=== PATIENT | female | born 1980 | race Two or more races ===

== ENCOUNTER 2023-06-01 18:10 | Inpatient (IN) | payer MEDICAID, OTHER ==
[~2023-06-01] VITALS: Ht 144.8 cm; Wt 73.4 kg
[2023-06-01 19:08] LABS: BASOPHILS % (AUTO) 0.9 % (0.0-2.0); EOSINOPHILS % (AUTO) 0.1 % (1.0-6.0); HEMATOCRIT 39.7 % (36-46); LYMPHOCYTES # (AUTO) 2.1 K/uL (1.0-4.8); LYMPHOCYTES % (AUTO) 27.7 % (22.0-44.0); MEAN CORPUSCULAR HEMOGLOBIN 25.5 pg (26.0-34.0); MEAN CORPUSCULAR HGB CONC 32.8 G/dL (31.0-37.0); MEAN CORPUSCULAR VOLUME 78 fL (80-100); MONOCYTES # (AUTO) 0.6 K/uL (0.1-1.0); MONOCYTES % (AUTO) 7.5 % (2.0-9.0); NEUTROPHILS # (AUTO) 4.9 K/uL (1.8-7.7); NEUTROPHILS % (AUTO) 63.8 % (40.0-70.0); PLATELET COUNT (AUTO) 349 K/uL (150-450); RED BLOOD CELL COUNT(AUTO) 5.12 MIL/uL (4.00-5.20); RED CELL DISTRIBUTION WIDTH 15.8 % (11.5-14.5); WHITE BLOOD COUNT (AUTO) 7.7 K/uL (4.5-11.0)
[2023-06-01 19:11] LABS: ANION GAP 11 mmol/L (8-16); CALCIUM, TOTAL 9.3 mg/dL (8.8-10.5); CARBON DIOXIDE 27 mmol/L (22-29); CHLORIDE 102 mmol/L (98-107); CREATININE 0.62 mg/dL (0.60-1.30); GLOMERULAR FILTR. RATE CALC > 60 mL/min (>60); GLUCOSE,RANDOM 97 mg/dL (70-110); POTASSIUM 3.4 mmol/L (3.5-5.1); SODIUM SERUM 139 mmol/L (136-145); UREA NITROGEN, BLOOD 11 mg/dL (7-18)
[2023-06-01 19:17] LABS: ALANINE AMINOTRANSFERASE 8 U/L (12-78); ALBUMIN 3.9 g/dL (3.4-5.0); ALKALINE PHOSPHATASE 89 U/L (46-116); ASPARTATE AMINOTRANSFERASE 15 U/L (15-37); BILIRUBIN,TOTAL 0.3 mg/dL (0.1-1.0); TOTAL PROTEIN, SERUM 7.6 g/dL (6.4-8.2)
[2023-06-01 19:18] LABS: ALCOHOL, BLOOD (SERUM) < 3 mg/dL (0-10)
[2023-06-01] MEDS ORDERED: LORazepam 2 MG TABLET PO ONE (19:45)
[2023-06-01] MEDS ORDERED: TraZODone HCL 50 MG TABLET PO ONE (19:45)
[2023-06-01] MEDS ORDERED: ZOLPIDEM TARTRATE 10 MG TABLET PO PRN (20:00)
[2023-06-01] MEDS ORDERED: LORazepam 2 MG TABLET PO PRN (20:00)
[2023-06-01] MEDS ORDERED: HALOPERIDOL 5 MG TABLET PO PRN (20:00)
[2023-06-01 20:44] LABS: APPEARANCE,URINE HAZY (CLEAR); BILIRUBIN,URINE NEGATIVE (NEGATIVE); COLOR,URINE YELLOW (YELLOW); GLUCOSE, URINE (UA) NEGATIVE (NEGATIVE); LEUKOCYTE ESTERASE ,URINE LARGE (NEGATIVE); NITRATE,URINE NEGATIVE (NEGATIVE); OCCULT BLOOD,URINE LARGE (NEGATIVE); PH,URINE 6.5 (5.0-8.0); PROTEIN,URINE 30-70 mg/dL (NEGATIVE); UROBILINOGEN,URINE <=1.0 mg/dL (<=1.0)
[2023-06-01 20:48] LABS: PH,URINE DRUG SCREEN 6.5 (5.0-8.0)
[2023-06-01 20:49] LABS: ALCOHOL, URINE DRUG SCREEN NEGATIVE (NEGATIVE); AMPHET/METH SCREEN,URINE NEGATIVE (NEGATIVE); BARBITURATE SCREEN, URINE NEGATIVE (NEGATIVE); BENZODIAZEPINES SCREEN,URINE NEGATIVE (NEGATIVE); CANNABINOID SCREEN,URINE NEGATIVE (NEGATIVE); COCAINE SCREEN,URINE NEGATIVE (NEGATIVE); METHADONE SCREEN, URINE NEGATIVE (NEGATIVE); OPIATE SCREEN,URINE NEGATIVE (NEGATIVE); PHENCYCLIDINE SCREEN,URINE NEGATIVE (NEGATIVE)
[2023-06-01 20:56] LABS: BACTERIA,URINE Few /HPF (None Seen); RBC,URINE 26-50 /HPF (0-2); WBC,URINE 51-100 /HPF (0-5)
[2023-06-01 20:57] LABS: SQUAMOUS EPITHELIAL CELL,UR Many /LPF (None Seen)
[2023-06-01 23:00] VITALS: RESP 18
[2023-06-01 23:13] LABS: COVID AG,FIA SOURCE NASAL SWAB
[2023-06-01 23:40] LABS: SARS-COV2 (COVID) ANTIGEN,FIA Negative (Negative)
[2023-06-02] VITALS (8 sets, daily range): BP systolic 109–115; BP diastolic 52–78; PULSE 76–88; RESP 18; TEMP 97–97.6
[2023-06-02] MEDS ORDERED: IBUPROFEN 600 MG TABLET PO PRN (05:45)
[2023-06-02] MEDS ORDERED: MAG HYDROX/AL HYDROX/SIMETH ES 30 ML SUSPENSION UDCUP PO PRN (05:45)
[2023-06-02] MEDS ORDERED: BACITRACIN 28 GM OINTMENT TP PRN (05:45)
[2023-06-02] MEDS ORDERED: ONDANSETRON HCL 4 MG TABLET PO PRN (05:45)
[2023-06-02] MEDS ORDERED: PETROLATUM,WHITE 28 GM JELLY TP PRN (05:45)
[2023-06-02] MEDS ORDERED: MAGNESIUM HYDROXIDE SUSPENSION 30 ML UDCUP PO PRN (05:45)
[2023-06-02] MEDS ORDERED: LOPERAMIDE HCL 2 MG CAPSULE PO PRN (05:45)
[2023-06-02] MEDS ORDERED: BENZOCAINE/MENTHOL LOZENGE PO PRN (05:45)
[2023-06-02] MEDS ORDERED: ACETAMINOPHEN 325 MG TABLET PO PRN (05:45)
[2023-06-02] MEDS ORDERED: OMEPRAZOLE 20 MG CAPSULE PO PRN (05:45)
[2023-06-02] MEDS ORDERED: ALBUTEROL SULFATE HFA 90 MCG/PUFF 8 GM INHALER IH PRN (05:45)
[2023-06-02] MEDS ORDERED: CloNIDine HCL 0.1 MG TABLET PO PRN (05:45)
[2023-06-02] MEDS ORDERED: DOCUSATE SODIUM 100 MG CAPSULE PO PRN (05:45)
[2023-06-02] MEDS: LACTOBAC ACID/BULG/BIFID/THERM TABLET PO SCH (09:08)
[2023-06-02] MEDS: NITROFURANTOIN MONOHYD/M-CRYST 100 MG CAPSULE [MACROBID] PO SCH ×2 (09:08→16:09)
[2023-06-02] MEDS ORDERED: VENLAFAXINE HCL 75 MG TABLET PO SCH (11:30)
[2023-06-02] MEDS: VENLAFAXINE HCL 37.5 MG TABLET PO SCH (15:16)
[2023-06-02] MEDS: TraZODone HCL 100 MG TABLET PO SCH (21:00)
[2023-06-03] VITALS (7 sets, daily range): BP systolic 130–158; BP diastolic 61–92; PULSE 88–93; RESP 18–19; TEMP 97.5–98
[2023-06-03] MEDS: LACTOBAC ACID/BULG/BIFID/THERM TABLET PO SCH (08:37)
[2023-06-03] MEDS: VENLAFAXINE HCL 37.5 MG TABLET PO SCH (08:37)
[2023-06-03] MEDS: NITROFURANTOIN MONOHYD/M-CRYST 100 MG CAPSULE [MACROBID] PO SCH ×2 (08:38→16:09)
[2023-06-03] MEDS ORDERED: VENLAFAXINE HCL 37.5 MG TABLET PO SCH (15:00)
[2023-06-03] MEDS ORDERED: TRAZ-257 PO (18:45)
[2023-06-03] MEDS ORDERED: VENL-68 PO (18:45)
[2023-06-03] MEDS ORDERED: LACT1CAP70 PO (18:45)
[2023-06-03] MEDS ORDERED: NITR-75 PO (18:45)
[2023-06-03] MEDS: TraZODone HCL 100 MG TABLET PO SCH (21:00)
[2023-06-04 00:33] VITALS: RESP 18
[2023-06-04 04:50] VITALS: RESP 18
[2023-06-04] MEDS: NITROFURANTOIN MONOHYD/M-CRYST 100 MG CAPSULE [MACROBID] PO SCH (08:45)
[2023-06-04] MEDS: LACTOBAC ACID/BULG/BIFID/THERM TABLET PO SCH (08:45)
[2023-06-04] MEDS ORDERED: VENLAFAXINE HCL 150 MG ER CAPSULE PO SCH (09:00)
== END 2023-06-04 10:05 | disposition home or self-care (01) | DRG 751 ==
LOC: EMS 18:11 → 3EI 23:00
PROVIDERS: ADMIT Psychiatry & Neurology Psychiatry; ATTEND Psychiatry & Neurology Psychiatry
DX: F33.2 Major depressive disorder, recurrent severe without psychotic features (principal); R45.851 Suicidal ideations; Z20.822 Contact with and (suspected) exposure to COVID-19; E87.6 Hypokalemia; F41.9 Anxiety disorder, unspecified; G47.00 Insomnia, unspecified; K59.00 Constipation, unspecified; N39.0 Urinary tract infection, site not specified
CPT/HCPCS: 80053; 80307; 81001; 84703; 85025; 87086; 87186; 99285; G0480